=== PATIENT | female | born 1945 | race American Indian/Alaskan Native ===

== ENCOUNTER 2017-11-02 14:42 | Emergency (ER) | payer MEDICARE ==
[2017-11-02 14:43] VITALS: BMI 29.9
[2017-11-02 14:51] VITALS: BP 128/76; PULSE 82; RESP 18; TEMP 98.4; O2SAT 100
--- NOTE | 2017-11-02 15:00 | ED PDOC ---
Arrival/HPI - General Chief Complaint: Lower Extremity Problem/Injury Time Seen by Provider: 11/02/17 14:49 Historian: Patient - History of Present Illness Narrative History of Present Illness (Text): 11/02/17 14:57 89 year old female, whose history includes diabetes, hypertension, GERD, and high cholesterol, presents to the Emergency Department complaining of left knee pain for 1 week. Patient took Tylenol x2 this morning with no relief. Patient denies any trauma/injury, fever, chills, chest pain, shortness of breath , nausea, vomiting, diarrhea, urinary symptoms, back pain, neck pain, headache, dizziness, or any other complaints. Time/Duration: 1 week Symptom Onset: Gradual Symptom Course: Unchanged Context: Home Past Medical History - Provider Review Nursing Documentation Reviewed: Yes - Reproductive Menopause: Yes - Cardiac Hx Hypertension: Yes - Pulmonary Hx Respiratory Disorders: No - Neurological Hx Paralysis: No - HEENT Hx HEENT Disorder: No - Renal Hx Renal Disorder: No - Endocrine/Metabolic Hx Diabetes Mellitus Type 2: Yes - Hematological/Oncological Hx Blood Transfusions: No - Integumentary Hx Dermatological Disorder: No - Musculoskeletal/Rheumatological Hx Musculoskeletal Disorders: No - Gastrointestinal Hx Gastrointestinal Disorders: No - Genitourinary/Gynecological Hx Genitourinary Disorders: No - Psychiatric Hx Emotional Abuse: No Hx Physical Abuse: No Hx Substance Use: No - Anesthesia Hx Anesthesia Reactions: No Hx Malignant Hyperthermia: No - Suicidal Assessment Feels Threatened In Home Enviroment: No Family/Social History - Physician Review Nursing Documentation Reviewed: Yes Family/Social History: Unknown Family HX Smoking Status: Never Smoked Hx Alcohol Use: No Hx Substance Use: No Allergies/Home Meds Allergies/Adverse Reactions: Allergies codeine Allergy (Verified 11/02/17 14:51) CONFUSION shellfish derived Allergy (Verified 11/02/17 14:51) RASH Home Medications: Home Meds Medication Instructions Recorded Confirmed Metoprolol Tartrate [Lopressor] 50 mg PO DAILY 12/12/15 11/02/17 metFORMIN [glucOPHAGE] 500 mg PO BID 12/12/15 11/02/17 Aspirin [Ecotrin] 81 mg PO DAILY 05/05/17 11/02/17 Pantoprazole [Protonix] 40 mg PO DAILY PRN 05/05/17 11/02/17 Atorvastatin [Lipitor] 20 mg PO DAILY 11/02/17 11/02/17 Review of Systems - Physician Review All systems were reviewed & negative as marked: Yes - Review of Systems Constitutional: absent: Fevers Respiratory: absent: SOB Cardiovascular: absent: Chest Pain Gastrointestinal: absent: Diarrhea, Nausea, Vomiting Genitourinary Female: absent: Dysuria Musculoskeletal: Other (left knee pain). absent: Back Pain, Neck Pain Neurological: absent: Headache, Dizziness Physical Exam Vital Signs Reviewed: Yes Vital Signs Temp Pulse Resp BP Pulse Ox 11/02/17 14:49 98.4 F 82 18 128/76 100 Temperature: Afebrile Blood Pressure: Normal Pulse: Regular Respiratory Rate: Normal Appearance: Positive for: Well-Appearing, Non-Toxic, Comfortable Pain Distress: None Mental Status: Positive for: Alert and Oriented X 3 - Systems Exam Head: Present: Atraumatic, Normocephalic Pupils: Present: PERRL Extroacular Muscles: Present: EOMI Conjunctiva: Present: Normal Mouth: Present: Moist Mucous Membranes Neck: Present: Normal Range of Motion Respiratory/Chest: Present: Clear to Auscultation, Good Air Exchange. No: Respiratory Distress, Accessory Muscle Use Cardiovascular: Present: Regular Rate and Rhythm, Normal S1, S2. No: Murmurs Abdomen: No: Tenderness, Distention, Peritoneal Signs Back: Present: Normal Inspection Upper Extremity: Present: Normal Inspection. No: Cyanosis, Edema Lower Extremity: Present: Other (pain with activation of quad muscle in kneecap and patella area) Neurological: Present: GCS=15, CN II-XII Intact, Speech Normal Skin: Present: Warm, Dry, Normal Color. No: Rashes Psychiatric: Present: Alert, Oriented x 3, Normal Insight, Normal Concentration Medical Decision Making ED Course and Treatment: 11/02/17 15:01 Impression: 71 year old female presents to the Emergency Department complaining of left knee pain. Differential Diagnosis included but are not limited to: arthritis Plan: -- Left knee xray -- Reassess and disposition Progress Notes: - RAD Interpretation Radiology Orders: 11/02/17 14:56 KNEE WITH PATELLA LEFT 3 VIEW [RAD] Stat - Scribe Statement The provider has reviewed the documentation as recorded by the Tanna Georges Provider Scribe Attestation: All medical record entries made by the Scribzan were at my direction and personally dictated by me. I have reviewed the chart and agree that the record accurately reflects my personal performance of the history, physical exam, medical decision making, and the department course for this patient. I have also personally directed, reviewed, and agree with the discharge instructions and disposition. Disposition/Present on Arrival - Present on Arrival Any Indicators Present on Arrival: No History of DVT/PE: No History of Uncontrolled Diabetes: No Urinary Catheter: No History of Decub. Ulcer: No History Surgical Site Infection Following: None - Disposition Have Diagnosis and Disposition been Completed?: Yes Diagnosis: Osteoarthritis Disposition: HOME/ ROUTINE Disposition Time: 15:38 Patient Plan: Discharge Condition: GOOD Discharge Instructions (ExitCare): Osteoarthritis (DC) Forms: [facility] ([place]ican)
--- NOTE | 2017-11-02 15:41 | RAD ---
PROCEDURE: Left Knee Radiographs. HISTORY: Pain. COMPARISON: None. FINDINGS: BONES: Three views of the left knee were performed. Tricompartmental degenerative changes are noted. No fracture is seen. No lytic process is identified. No loose bodies are seen. Patella appears normal location. No joint effusion is seen. Tibial plateaus are intact. JOINTS: Tricompartmental degenerative changes. JOINT EFFUSION: None. OTHER FINDINGS: None. IMPRESSION: Tricompartmental DJD. No fracture.
== END 2017-11-02 15:48 | disposition home or self-care (01) ==
LOC: ED 14:42
DX: M17.12 Unilateral primary osteoarthritis, left knee (principal); E11.9 Type 2 diabetes mellitus without complications; E78.00 Pure hypercholesterolemia, unspecified; I10 Essential (primary) hypertension

== ENCOUNTER 2017-11-29 15:59 | Emergency (ER) | payer MEDICARE ==
[2017-11-29 16:06] VITALS: BMI 29.0
[2017-11-29 16:11] VITALS: RESP 18; TEMP 98.5
--- NOTE | 2017-11-29 16:41 | ED PDOC ---
Arrival/HPI - General Chief Complaint: Back Pain Time Seen by Provider: 11/29/17 16:27 - History of Present Illness Narrative History of Present Illness (Text): you were treated in the ED today for hx of diabetes, hypertension, cholesterol, right back of shoulder pain which goes down the right arm and right hand/4th finger trigger effect but otherwise without any fall/injury/neck pain/loss of consciousness/nausea/vomiting/headache/dizziness/difficulty breathing/chest pain /abdomen pain/numbness/tingling/loss of limb function/pain with urination/travel /prior blood clots/prior cancer/hormonal use. Time/Duration: > week (3) Symptom Onset: Gradual Symptom Course: Intermittent Quality: Aching Severity Level: 1 Activities at Onset: Rest Context: Sitting Past Medical History - Provider Review Nursing Documentation Reviewed: Yes - Travel History Have you recently traveled outside [place] w/in the past 3 mons?: No - Infectious Disease Hx of Infectious Diseases: None - Reproductive Menopause: Yes - Cardiac Hx Hypertension: Yes - Pulmonary Hx Respiratory Disorders: No - Neurological Hx Paralysis: No - HEENT Hx HEENT Disorder: No - Renal Hx Renal Disorder: No - Endocrine/Metabolic Hx Diabetes Mellitus Type 2: Yes - Hematological/Oncological Hx Blood Transfusions: No - Integumentary Hx Dermatological Disorder: No - Musculoskeletal/Rheumatological Hx Musculoskeletal Disorders: No - Gastrointestinal Hx Gastrointestinal Disorders: No - Genitourinary/Gynecological Hx Genitourinary Disorders: No - Psychiatric Hx Emotional Abuse: No Hx Physical Abuse: No Hx Substance Use: No - Anesthesia Hx Anesthesia Reactions: No Hx Malignant Hyperthermia: No - Suicidal Assessment Feels Threatened In Home Enviroment: No Family/Social History - Physician Review Nursing Documentation Reviewed: Yes Family/Social History: Unknown Family HX Smoking Status: Never Smoked Hx Alcohol Use: No Hx Substance Use: No Allergies/Home Meds Allergies/Adverse Reactions: Allergies codeine Allergy (Verified 11/02/17 14:51) CONFUSION shellfish derived Allergy (Verified 11/02/17 14:51) RASH Home Medications: Home Meds Medication Instructions Recorded Confirmed Metoprolol Tartrate [Lopressor] 50 mg PO DAILY 12/12/15 11/29/17 metFORMIN [glucOPHAGE] 500 mg PO BID 12/12/15 11/29/17 Pantoprazole [Protonix] 40 mg PO DAILY PRN 05/05/17 11/29/17 Atorvastatin [Lipitor] 20 mg PO DAILY 11/02/17 11/29/17 Review of Systems - Review of Systems Constitutional: Normal Eyes: Normal ENT: Normal Respiratory: Normal Cardiovascular: Normal Gastrointestinal: Normal Genitourinary Female: Normal Musculoskeletal: Arthralgias Skin: Normal Neurological: Normal Endocrine: Normal Hemo/Lymphatic: Normal Psychiatric: Normal Physical Exam Vital Signs Reviewed: Yes Vital Signs Temp Pulse Resp BP Pulse Ox 11/29/17 18:16 75 18 130/73 96 11/29/17 16:00 98.5 F 82 18 146/81 100 Temperature: Afebrile Blood Pressure: Hypertensive Pulse: Regular Respiratory Rate: Normal Appearance: Positive for: Well-Appearing, Non-Toxic, Comfortable Pain Distress: None Mental Status: Positive for: Alert and Oriented X 3 - Systems Exam Head: Present: Atraumatic, Normocephalic Pupils: Present: PERRL Extroacular Muscles: Present: EOMI Conjunctiva: Present: Normal Ears: Present: Normal Mouth: Present: Moist Mucous Membranes Pharnyx: Present: Normal Nose (External): Present: Atraumatic Nose (Internal): Present: Normal Inspection Neck: Present: Normal Range of Motion Respiratory/Chest: Present: Clear to Auscultation, Good Air Exchange Cardiovascular: Present: Regular Rate and Rhythm Abdomen: No: Tenderness, Distention, Normal Bowel Sounds, Peritoneal Signs, Rebound, Guarding, McBurney's Point Tender, Rovsing's Sign Present, Hernias, Feeding Tubes, Ostomy Tubes, Mass/Organomegaly, Scars, Other Back: Present: Normal Inspection Upper Extremity: Present: Other (right back of shoulder mild discomfort and right hand 4th finger trigger finger without any tenderness and otherwise warm/ sensation/cap refill/radiology pulse) Lower Extremity: Present: Normal Inspection Neurological: Present: GCS=15, CN II-XII Intact, Speech Normal, Motor Func Grossly Intact Skin: Present: Warm, Normal Color Psychiatric: Present: Alert, Oriented x 3, Normal Insight, Normal Concentration Medical Decision Making ED Course and Treatment: you were treated in the ED today for hx of diabetes, hypertension, cholesterol, right back of shoulder pain which goes down the right arm and right hand/4th finger trigger effect but otherwise without any fall/injury/neck pain/loss of consciousness/nausea/vomiting/headache/dizziness/difficulty breathing/chest pain /abdomen pain/numbness/tingling/loss of limb function/pain with urination/travel /prior blood clots/prior cancer/hormonal use. You were otherwise breathing easily, smiling and talking easily, good strength/sensation, walking easily, clear lungs, no abdomen tenderness, no spinal tenderness, right back of shoulder mild discomfort and right hand 4th finger trigger finger without any tenderness and otherwise warm/sensation/cap refill/radiology pulse, no spinal tenderness, no fever temp 98.5, stable heart rate 82, stable breathing rate 18, excellent oxygen level 100% room air, elevated blood pressure 146/81 which we recommend repeat in 2-3 days primary care office to determine further treatment , you have blood tests no infection count 6, stable blood level hemoglobin 9/ platelets 224, stable chemistry, heart blood test negative less than 0.01, urine test with sign of infection and you stated you recently had urinary symptoms/infection, radiology chest xray initial no acute, right shoulder initial no acute, right hand xray initial no acute, ECG normal sinus rhythm, tylenol, right shoulder sling for support, observation done in the ED with improvement, counselled to rest right upper extremity and thus discharged home. 1. Recommend tylenol as directed for pain. recommend macrobid as directed for urine infection control. 2. Recommend follow-up primary care 2 days to review symptoms, referral to orthopedics clinic to review your symptoms and cardiology clinic to review your symptoms, referral to urology clinic for blood in urine to ensure no complications. 4. If any worsening pain, fever, chills, nausea, vomiting, difficulty breathing, numbness, loss of limb function, pain with urination or any medical condition then return to the ED. 11/29/17 19:27 Reassessment Condition: Re-examined, Improved - Lab Interpretations Lab Results: 11/29/17 17:00 11/29/17 17:00 Lab Results 11/29/17 18:07: Urine Color Yellow, Urine Appearance Clear, Urine pH 6.5, Ur Specific [place] 1.010, Urine Protein Negative, Urine Glucose (UA) Negative, Urine Ketones Negative, Urine Blood Trace-intact H, Urine Nitrate Negative, Urine Bilirubin Negative, Urine Urobilinogen 0.2, Ur Leukocyte Esterase Large H , Urine RBC 0 - 2, Urine WBC 5 - 10, Ur Epithelial Cells 1 - 3, Urine Other Trichomonas 11/29/17 17:00: POC Glucose (mg/dL) 136 H 11/29/17 17:00: PT 11.5, INR 1.01, APTT 36.4 11/29/17 17:00: Sodium 144, Potassium 3.8, Chloride 106, Carbon Dioxide 25, Anion Gap 16, BUN 10, Creatinine 0.9, Est GFR ( Amer) > 60, Est GFR (Non- Af Amer) > 60, Random Glucose 135 H, Calcium 9.1, Magnesium 1.9, Total Bilirubin 0.3, AST 18, ALT 24, Alkaline Phosphatase 57, Lactate Dehydrogenase 430, Total Creatine Kinase 75, Troponin I < 0.01 D, Total Protein 6.7, Albumin 3.8, Globulin 2.9, Albumin/Globulin Ratio 1.3 11/29/17 17:00: WBC 6.1, RBC 3.14 L, Hgb 9.4 L, Hct 27.8 L, MCV 88.5, MCH 29.9, MCHC 33.8, RDW 13.3, Plt Count 224, MPV 10.3, Gran % 47.9 L, Lymph % (Auto) 38.1 H, Lee % (Auto) 9.4 H, Eos % (Auto) 4.1, Baso % (Auto) 0.5, Gran # 2.92, Lymph # (Auto) 2.3, Lee # (Auto) 0.6, Eos # (Auto) 0.3, Baso # (Auto) 0.03 I have reviewed the lab results: Yes - RAD Interpretation Radiology Orders: 11/29/17 16:32 SHOULDER RIGHT [RAD] Stat 11/29/17 16:33 HAND RIGHT 3 VIEWS [RAD] Stat 11/29/17 16:34 CHEST TWO VIEWS (PA/LAT) [RAD] Stat Precision Assembly Inspector: ED Physician (right shoulder no acute, chest no acute, right hand xray no acute) - EKG Interpretation Interpreted by ED Physician: Yes (NSR) Type: 12 lead EKG - Medication Orders Current Medication Orders: Nitrofurantoin Macrocrystals (Macrobid) 100 mg PO STAT STA PRN Reason: Protocol Stop: 11/29/17 19:22 Discontinued Medications Acetaminophen (Tylenol 325mg Tab) 975 mg PO STAT STA Stop: 11/29/17 16:34 Last Admin: 11/29/17 16:50 Dose: 975 mg MAR Pain/Vitals Document 11/29/17 16:50 OCS (Rec: 11/29/17 16:51 OCS [id number]) Pain Reassessment Is This A Pain ReAssessment? Yes Sleep Is patient sleeping during reassessment? No Presence of Pain Presence of Pain Yes Pain Scale Used Pain Scale Used Numeric Location Left, Right or Bilateral Right Pain Location Body Site Shoulder Description Constant Intensity 7 Scale Used Numeric Aggravating Factors ADL's Disposition/Present on Arrival - Present on Arrival Any Indicators Present on Arrival: No History of DVT/PE: No History of Uncontrolled Diabetes: No Urinary Catheter: No History of Decub. Ulcer: No History Surgical Site Infection Following: None - Disposition Have Diagnosis and Disposition been Completed?: Yes Diagnosis: Shoulder pain, Urinary tract infection, Trigger finger Disposition: HOME/ ROUTINE Disposition Time: 19:26 Patient Plan: Discharge Condition: IMPROVED Discharge Instructions (ExitCare): Trigger Finger (DC), Urinary Tract Infection , Adult (DC), Shoulder Pain (DC) Additional Instructions: you were treated in the ED today for hx of diabetes, hypertension, cholesterol, right back of shoulder pain which goes down the right arm and right hand/4th finger trigger effect but otherwise without any fall/injury/neck pain/loss of consciousness/nausea/vomiting/headache/dizziness/difficulty breathing/chest pain /abdomen pain/numbness/tingling/loss of limb function/pain with urination/travel /prior blood clots/prior cancer/hormonal use. You were otherwise breathing easily, smiling and talking easily, good strength/sensation, walking easily, clear lungs, no abdomen tenderness, no spinal tenderness, right back of shoulder mild discomfort and right hand 4th finger trigger finger without any tenderness and otherwise warm/sensation/cap refill/radiology pulse, no spinal tenderness, no fever temp 98.5, stable heart rate 82, stable breathing rate 18, excellent oxygen level 100% room air, elevated blood pressure 146/81 which we recommend repeat in 2-3 days primary care office to determine further treatment , you have blood tests no infection count 6, stable blood level hemoglobin 9/ platelets 224, stable chemistry, heart blood test negative less than 0.01, urine test with sign of infection and you stated you recently had urinary symptoms/infection, radiology chest xray initial no acute, right shoulder initial no acute, right hand xray initial no acute, ECG normal sinus rhythm, tylenol, right shoulder sling for support, observation done in the ED with improvement, counselled to rest right upper extremity and thus discharged home. 1. Recommend tylenol as directed for pain. recommend macrobid as directed for urine infection control. 2. Recommend follow-up primary care 2 days to review symptoms, referral to orthopedics clinic to review your symptoms and cardiology clinic to review your symptoms, referral to urology clinic for blood in urine to ensure no complications. 4. If any worsening pain, fever, chills, nausea, vomiting, difficulty breathing, numbness, loss of limb function, pain with urination or any medical condition then return to the ED. Prescriptions: Nitrofurantoin Macrocrystals [Macrobid] 100 mg PO Q12 7 Days #14 cap Referrals: Shawnee Uribe MD [Primary Care Provider] - Follow up with primary Forms: [facility] ([place]ian)
[2017-11-29 17:18] LABS: ALB/GLOB RATIO 1.3 (1.1-1.8); ALBUMIN 3.8 g/dL (3.0-4.8); ALT/SGPT 24 U/L (7-56); AST/SGOT 18 U/L (14-36); BLOOD UREA NITROGEN 10 mg/dL (7-21); CALCIUM 9.1 mg/dL (8.4-10.5); GFR AFRICAN-AMERICAN > 60; GFR NON-AFRICAN AMERICAN > 60
[2017-11-29 17:19] LABS: PROTHROMBIN TIME 11.5 SECONDS (9.4-12.5)
[2017-11-29 17:20] LABS: INR 1.01 (0.93-1.08); PARTIAL THROMBOPLASTIN TIME 36.4 Seconds (25.1-36.5)
[2017-11-29 17:23] LABS: BASO # 0.03 K/mm3 (0.0-2.0); BASO % 0.5 % (0.0-3.0); EOS # 0.3 (0.0-0.7); EOS % 4.1 % (1.5-5.0); GRAN # 2.92 (1.4-6.5); GRAN % 47.9 % (50.0-68.0); HEMOGLOBIN 9.4 g/dL (12.0-16.0); LYMPH # 2.3 (1.2-3.4); LYMPH % 38.1 % (22.0-35.0); MEAN CELL VOLUME 88.5 fl (80.0-105.0); MEAN CORPUSCULAR HEMOGLOBIN 29.9 pg (25.0-35.0); MEAN CORPUSCULAR HGB CONC 33.8 g/dl (31.0-37.0); MEAN PLATELET VOLUME 10.3 fl (7.0-11.0); MONO # 0.6 (0.1-0.6); MONO % 9.4 % (1.0-6.0); RBC 3.14 10^6/uL (3.5-6.1); RED CELL DISTRIBUTION WIDTH 13.3 % (11.5-14.5); WHITE BLOOD COUNT 6.1 10^3/ul (4.5-11.0)
[2017-11-29 17:29] LABS: TROPONIN I < 0.01 ng/mL
[2017-11-29 18:22] LABS: PH,URINE 6.5 (4.7-8.0); URINE APPEARANCE CLEAR (CLEAR); URINE BILIRUBIN NEGATIVE (NEGATIVE); URINE BLOOD TRACE-INTACT (NEGATIVE); URINE COLOR YELLOW (YELLOW); URINE GLUCOSE (UA) NEGATIVE (NEGATIVE); URINE LEUKOCYTE ESTERASE LARGE Leu/uL (NEGATIVE); URINE PROTEIN NEGATIVE mg/dL (<30 mg/dL); URINE UROBILINOGEN 0.2 E.U./dL (<1 E.U./dL)
[2017-11-29 18:30] LABS: URINE RBC 0 - 2 /hpf (0-2)
[2017-11-29 19:36] VITALS: BP 139/76; PULSE 72; O2SAT 98
--- NOTE | 2017-11-30 09:27 | RAD ---
PROCEDURE: Radiographs of the Right Shoulder HISTORY: Right shoulder pain COMPARISON: No prior. FINDINGS: BONES: Normal. No fracture. JOINTS: Minor degenerative osteoarthritis right acromioclavicular and glenohumeral joints. . . SOFT TISSUES: Normal. OTHER FINDINGS: None. IMPRESSION: Minor degenerative osteoarthritis right acromioclavicular and glenohumeral joints. . .
--- NOTE | 2017-11-30 10:07 | RAD ---
HISTORY: 72yoF, right shoulder pain COMPARISON: Comparison chest dated 01/26/2016 TECHNIQUE: Chest PA and lateral FINDINGS: LUNGS: The interstitial markings are slightly increased and coarsened ; rule out sequela of reactive/inflammatory airway disease or viral illness. . No focal consolidation PLEURA: No significant pleural effusion identified. No pneumothorax apparent. CARDIOVASCULAR: Normal. OSSEOUS STRUCTURES: No significant abnormalities. VISUALIZED UPPER ABDOMEN: Normal. OTHER FINDINGS: None. IMPRESSION: Slightly interstitial markings are slightly increased and coarsened ; rule out sequela of reactive/inflammatory airway disease or viral illness. . No focal consolidation
--- NOTE | 2017-11-30 10:09 | RAD ---
PROCEDURE: Right hand dated 11/29/2017 HISTORY: 72F, right hand pain COMPARISON: None. FINDINGS: BONES: Normal. No fracture. JOINTS: Normal. No osteoarthritic changes. SOFT TISSUES: Normal. OTHER FINDINGS: None. IMPRESSION: No evidence of acute displaced fracture nor dislocation. If symptoms persist or occult fracture suspected clinically recommend repeat radiographs in 5-10 days as most fractures should become radiographically evident in this timeframe.
--- NOTE | 2017-12-01 08:15 | CARD ---
APPROVED REPORT EKG Measurement Heart [id number] CO [id number] <Conclusion> Normal sinus rhythm Normal ECG
== END 2017-11-29 19:35 | disposition home or self-care (01) ==
LOC: ED 15:59
DX: N39.0 Urinary tract infection, site not specified (principal); M25.511 Pain in right shoulder; M65.341 Trigger finger, right ring finger; E11.9 Type 2 diabetes mellitus without complications; I10 Essential (primary) hypertension; E78.00 Pure hypercholesterolemia, unspecified

== ENCOUNTER 2018-09-17 07:43 | Outpatient (CLI) | payer MEDICARE | END 2018-09-17 07:44 | disposition home or self-care (01) | LOC: RAD 07:43 ==